=== PATIENT | female | born 1970 | race Caucasian/White ===

== ENCOUNTER → 2018-08-06 | Outpatient (CLI) | payer BC ==
--- NOTE | 2018-08-10 07:39 | MM ---
Reason for exam: screening (asymptomatic). Last mammogram was performed 2 years and 10 months ago. Physical Findings: A clinical breast exam by your physician is recommended on an annual basis and results should be correlated with mammographic findings. MG 3D Screening Mammo W/Cad Bilateral CC and MLO view(s) were taken. Prior study comparison: October 08, 2015, bilateral MG 3d screening mammo w/cad. August 04, 2014, bilateral MG screening mammo w CAD. No significant changes when compared with prior studies. ASSESSMENT: Benign, BI-RAD 2 RECOMMENDATION: Routine screening mammogram of both breasts in 1 year.
== END | disposition home or self-care (01) ==
LOC: RADMAMWWP 08:52
PROVIDERS: ATTEND Obstetrics & Gynecology
DX: Z12.31 Encounter for screening mammogram for malignant neoplasm of breast (principal)
CPT/HCPCS: 77063; 77067

== ENCOUNTER → 2019-09-07 | Outpatient (CLI) | payer BC ==
--- NOTE | 2019-09-08 10:57 | MM ---
Reason for exam: screening (asymptomatic). Last mammogram was performed 1 year and 1 month ago. Physical Findings: A clinical breast exam by your physician is recommended on an annual basis and results should be correlated with mammographic findings. MG 3D Screening Mammo W/Cad Bilateral CC, MLO, and XCCL view(s) were taken. Prior study comparison: August 06, 2018, bilateral MG 3d screening mammo w/cad. October 08, 2015, bilateral MG 3d screening mammo w/cad. The breast tissue is heterogeneously dense. This may lower the sensitivity of mammography. There is no discrete abnormality. ASSESSMENT: Negative, BI-RAD 1 RECOMMENDATION: Routine screening mammogram of both breasts in 1 year.
== END | disposition home or self-care (01) ==
LOC: RADMAMWWP 07:44
PROVIDERS: ATTEND Obstetrics & Gynecology
DX: Z12.31 Encounter for screening mammogram for malignant neoplasm of breast (principal)
CPT/HCPCS: 77063; 77067

== ENCOUNTER → 2020-09-10 | Outpatient (CLI) | payer BC ==
--- NOTE | 2020-09-11 10:37 | MM ---
Reason for exam: screening (asymptomatic). Last mammogram was performed 1 year ago. History: Took hormonal contraceptives for 20 years. Physical Findings: A clinical breast exam by your physician is recommended on an annual basis and results should be correlated with mammographic findings. MG 3D Screening Mammo W/Cad Bilateral CC and MLO view(s) were taken. Prior study comparison: September 07, 2019, bilateral MG 3d screening mammo w/cad. August 06, 2018, bilateral MG 3d screening mammo w/cad. The breast tissue is heterogeneously dense. This may lower the sensitivity of mammography. Finding: There is questionable architectural distortion in the upper outer quadrant of the left breast. ASSESSMENT: Incomplete: need additional imaging evaluation, BI-RAD 0 RECOMMENDATION: Special view mammogram of the left breast. If lesion persists on supplemental views, image directed ultrasound is recommended. [facility] will attempt to contact patient to return for supplemental views and ultrasound if indicated.
== END | disposition home or self-care (01) ==
LOC: RADMAMWWP 07:58
PROVIDERS: ATTEND Obstetrics & Gynecology
DX: Z12.31 Encounter for screening mammogram for malignant neoplasm of breast (principal)
CPT/HCPCS: 77063; 77067

== ENCOUNTER → 2020-09-11 | Day surgery (SDC) | payer BC ==
[2020-09-05 08:24] VITALS: BMI 26.6
[~2020-09-11] MED LIST: LACTATED RINGERS 1,000 ML IV SCH; LIDOCAINE 1% (10MG/ML) FOR IV START INTRADERMA PRN; PROPOFOL 10 MG/ML 20 ML VIAL IV ONE
[2020-09-11 10:13] VITALS: TEMP 97.9
--- NOTE | 2020-09-11 10:29 | P.GSHP ---
History of Present Illness H&P Date: 09/11/20 Chief Complaint: Colon cancer screening Patient today for colonoscopy. She has not had one previously. No bowel complaints. No family history of colon cancer. Past Medical History Past Medical History: No Reported History History of Any Multi-Drug Resistant Organisms: None Reported Past Surgical History: Section, Uterine Ablation Additional Past Surgical History / Comment(s): D & C Past Anesthesia/Blood Transfusion Reactions: No Reported Reaction Past Psychological History: No Psychological Hx Reported Smoking Status: Never smoker Past Alcohol Use History: Occasional Past Drug Use History: None Reported - Past Family History Mother Family Medical History: No Reported History Medications and Allergies Home Medications Medication Instructions Recorded Confirmed Type Cholecalciferol (Vitamin D3) 125 mcg PO DAILY 09/05/20 09/05/20 History [Vitamin D3] Evening [place] Oil 500 mg PO DAILY 09/05/20 09/05/20 History Magnesium Oxide [Magox 400] 400 mg PO DAILY 09/05/20 09/05/20 History Allergies Allergy/AdvReac Type Severity Reaction Status Date / Time ARTIFICIAL SWEETNERS AdvReac NUMBNESS/TINGLING Uncoded 09/05/20 08:17 IN EXTREMITIES Surgical - Exam Vital Signs Temp Pulse Resp BP Pulse Ox 97.9 F 106 H 20 125/56 97 09/11/20 10:04 09/11/20 10:04 09/11/20 10:04 09/11/20 10:04 09/11/20 10:04 Physical exam: General: Well-developed, well-nourished HEENT: Normocephalic, sclerae nonicteric Abdomen: Nontender, nondistended Extremities: No edema Neuro: Alert and oriented Assessment and Plan (1) Colon cancer screening Narrative/Plan: Will proceed with colonoscopy at this time Current Visit: Yes Status: Acute Code(s): Z12.11 - ENCOUNTER FOR SCREENING FOR MALIGNANT NEOPLASM OF COLON SNOMED Code(s): 694550917
--- NOTE | 2020-09-11 10:43 | P.PCN ---
Date of Procedure: 09/11/20 Procedure(s) Performed: PREOPERATIVE DIAGNOSIS: Colon cancer screening POSTOPERATIVE DIAGNOSIS: Diverticulosis PROCEDURE: Colonoscopy ANESTHESIA: MAC SURGEON: Vaibhav Vickers M.D. SPECIMENS: None ENDOSCOPIC PROCEDURE: The patient was placed on the endoscopy table in the left decubitus position. The Olympus colonoscope was inserted into the anus and passed under direct visualization to the base of the cecum. The appendiceal orifice was visualized. From that point the scope was slowly withdrawn inspe cting all surfaces carefully. There were no neoplastic inflammatory or polypoid lesions throughout the cecum, ascending, transverse, descending, sigmoid and rectum. There was moderate scattered diverticulosis noted. Digital rectal examination was normal. The patient was taken to the recovery room in stable condition per anesthesia guidelines. RECOMMENDATIONS: Resume diet. Follow colonoscopy 10 years
[2020-09-11 10:52] VITALS: BP 102/68; PULSE 91; RESP 16
== END ==
LOC: ORWHC2ENDO 09:40
PROVIDERS: ATTEND Surgery
DX: Z12.11 Encounter for screening for malignant neoplasm of colon (principal); K57.30 Diverticulosis of large intestine without perforation or abscess without bleeding; Z98.891 History of uterine scar from previous surgery; Z98.890 Other specified postprocedural states; Z91.09 Other allergy status, other than to drugs and biological substances
CPT/HCPCS: J2704; G0121; 45378

== ENCOUNTER → 2020-09-12 | Outpatient (CLI) | payer BC ==
--- NOTE | 2020-09-12 14:01 | MM ---
Reason for exam: additional evaluation requested from abnormal screening. Last mammogram was performed less than 1 month ago. History: Took hormonal contraceptives for 20 years. Physical Findings: Nurse Summary: 1cm nodule in the left breast at 3 o'clock (nurse ms). MG 3D Work Up W/Cad LT Spot compression CC, spot compression MLO, and LM view(s) were taken of the left breast. Prior study comparison: September 10, 2020, bilateral MG 3d screening mammo w/cad. September 07, 2019, bilateral MG 3d screening mammo w/cad. The breast tissue is heterogeneously dense. This may lower the sensitivity of mammography. 1.5cm spiculated mass posterior 3 o'clock left breast at the nurse palpated site. These results were verbally communicated with the patient and result sheet given to the patient on 09/12/20. ASSESSMENT: Incomplete: need additional imaging evaluation, BI-RAD 0 RECOMMENDATION: Ultrasound of the left breast.
--- NOTE | 2020-09-12 14:13 | USB ---
Reason for exam: additional evaluation requested from abnormal screening. History: Took hormonal contraceptives for 20 years. US Breast Workup LT Technologist: Alyssa Delaney Left complete breast ultrasound includes all four quadrants, the retroareolar region and axilla. Finding demonstrates a 0.4 x 0.3 x 0.2cm lesion too small to characterize at 1 o'clock probable cyst, a 0.7 x 0.5 x 0.3cm oval, cystic lesion at 2 o'clock, a 1.3 x 1.3 x 1.1cm spiculated, solid lesion at 3 o'clock, suspicious, biopsy recommended and a 0.8 x 0.9 x 0.5cm cystic lesion at 2 o'clock. These results were verbally communicated with the patient and result sheet given to the patient on 09/12/20. ASSESSMENT: Highly suggestive of malignancy, BI-RAD 5 RECOMMENDATION: Surgical consultation and ultrasound core biopsy of the left breast. Called Dr. Bowman's office with mammographic findings and has scheduled an appointment for the patient for 09/20/20 at 10:[address] Ramirez. Biopsy scheduled for 09/13/20 at 1:00. PRELIMINARY REPORT CALLED AND FAXED TO DR. RAMIREZ ON 09/12/20.
== END | disposition home or self-care (01) ==
LOC: RADMAMWWP 10:20
PROVIDERS: ATTEND Obstetrics & Gynecology
DX: R92.8 Other abnormal and inconclusive findings on diagnostic imaging of breast (principal)
CPT/HCPCS: 77061; 77065

== ENCOUNTER → 2020-09-13 | Day surgery (SDC) | payer BC ==
[2020-09-13 12:17] VITALS: RESP 16
--- NOTE | 2020-09-13 13:31 | USB ---
EXAMINATION TYPE: US biopsy breast VAD LT, MG diagnostic mammo LT wo CAD DATE OF EXAM: 09/13/2020 CLINICAL HISTORY: R92.8 Abnormal mammogram. Abnormal ultrasound. TECHNIQUE: Ultrasound guided core biopsy of left breast with clip placement and follow-up diagnostic two-view mammogram. COMPARISON: Mammogram and ultrasound from one day earlier. FINDINGS: The procedure of ultrasound guided core biopsy was explained to the patient. Benefits, alt ernatives, and risks were discussed. An informed consent was then obtained. The patient was placed in supine positioning for imaging and for the procedure. Preprocedure images redemonstrate irregular hypoechoic roughly 1.3 cm mass 3:00 position zone B in the left breast. The o verlying skin was prepped and draped in usual sterile fashion. Lidocaine is used as anesthetic into t he skin and subcutaneous tissue. Lidocaine with epinephrine is used as anesthetic into the deeper tis cassandra up to area of concern in the left breast. Under ultrasound guidance, a vacuum assisted biopsy gun device was used to obtain 3 core samples. Fo llowing this, a biopsy clip was left in lesion. The patient tolerated the procedure well without any immediate complication. The patient was kept in the radiology department for short stay after the procedure and then discharged home in stable condi tion. Postprocedure mammogram shows clip deployed corresponding to the area of suspicion or new distortion. IMPRESSION: Successful, uncomplicated ultrasound guided core biopsy of area of concern in the left br east, full pathology results to follow. High index of suspicion noted at time of procedure.
[2020-09-13 13:34] VITALS: BP 138/77; PULSE 109; TEMP 98.4
== END ==
LOC: RADUSWWP 11:56
PROVIDERS: ATTEND Surgery
DX: C50.812 Malignant neoplasm of overlapping sites of left female breast (principal); Z17.0 Estrogen receptor positive status [ER+]
CPT/HCPCS: 88305; 88342; 88341; 77065; 19083; A4648; J2001

== ENCOUNTER → 2020-10-17 | Outpatient (CLI) | payer BC ==
--- NOTE | 2020-10-19 07:54 | BMR ---
EXAMINATION TYPE: MR breast BILAT wo/w con DATE OF EXAM: 10/17/2020 7:36 PM COMPARISON: Diagnostic mammography 09/12/2020 left breast ultrasound 09/12/2020 HISTORY: Left breast cancer CONTRAST: The patient was injected with 7.5 mL intravenous Gadavist gadolinium contrast. TECHNIQUE: Precontrast T1 and T2 coronal, axial and high-resolution STIR sagittal images were acquire d. Postcontrast dynamic images were acquired.This study was processed using a [employer] computer-aid ed detection system to optimize radiologist interpretation by generating multiplanar and three-dimens ional reconstructions, creating subtraction images from the dynamic contrast data and computing tumor volumes and dimensions. FINDINGS: Right breast: There is moderate fibroglandular tissue seen with mild adenosis present. There is no e vidence for an enhancing mass or pathologic enhancement. Scattered hyperintense lesions noted compat ible with simple cysts. No solid mass is detected. No skin thickening or nipple retraction is seen. No axillary adenopathy present. Left breast: There is moderate fibroglandular tissue seen with mild adenosis present. There has been prior biopsy at the approximate 3:00 position zone B with clip placement and biopsy-proven malignancy . Signal dropout is noted. No additional suspicious masses are noted within the left breast. Scattere d cysts are evident. No skin thickening or nipple retraction is seen. No axillary adenopathy present . IMPRESSION: 1. Right breast: BI-RADS 2 benign 2. Left breast: BI-RADS 6 biopsy-proven malignancy RECOMMENDATION: Surgical consultation MR is approximately 98% specific in excluding invasive or infil trative malignant neoplasm when hypovascularity or absence of enhancement is determined. Rare hypovas cular neoplasms include mucinous carcinomas and tubular carcinomas. MR may not detect low-grade of D CIS and unusual instances of hypovascular lobular carcinomas have been reported. Mr breast findings should not be used to mitigate against biopsy in cases where there is substantive mammographic eviden ce of malignancy. Mri is not a suitable substitute for yearly screening mammogram unless the patient has extremely dense breasts and the mammography study is limited or un-interpretable at which point the decision to substitute MR is at the discretion of the patient and the patients clinician.
== END | disposition home or self-care (01) ==
LOC: RADMRIMAIN 17:54
PROVIDERS: ATTEND Surgery
DX: C50.912 Malignant neoplasm of unspecified site of left female breast (principal)
CPT/HCPCS: 77049; C8937; A9585

== ENCOUNTER 2020-10-22 06:18 | Day surgery (SDC) | payer BC ==
[2020-10-17 10:43] VITALS: BMI 29.1
[~2020-10-22 06:18] MED LIST changes: +ACETAMINOPHEN TAB 500 MG TAB PO PRN; +DEXAMETHASONE SOD PHOSPHATE 4 MG/ML 1 ML VIAL IV ONE; +HEPARIN SODIUM,PORCINE 5,000 UNIT/ML 1 ML VIAL SQ PRN; +ONDANSETRON 4 MG/2 ML VIAL IVP ONE; -PROPOFOL 10 MG/ML 20 ML VIAL IV ONE; +Pre Op ABX Message 1 EACH MISC MISCELLANE ONE; +SCOPOLAMINE 1.5MG/72HR PATCH TRANSDERM ONE
[2020-10-22] MEDS ORDERED: LACTATED RINGERS 1,000 ML IV ONE ×4 (06:28→13:57)
[2020-10-22] MEDS ORDERED: ALPRAZolam 0.5 MG TAB ONE (06:43)
--- NOTE | 2020-10-22 07:50 | P.GSHP ---
History of Present Illness H&P Date: 10/22/20 49-year-old female underwent recentmammogram showing distortion upper outer quadrant. Ultrasound showed a 1.5 cm mass. Biopsy results show ER positive KS positive invasive ductal carcinoma. Patient underwent a recent MRI that was normal. Genetic testing has been ordered still pending at this time. She has been seen by oncology supports her plans for breast conservation Past Medical History Past Medical History: Cancer Additional Past Medical History / Comment(s): breast cancer lt breast History of Any Multi-Drug Resistant Organisms: None Reported Past Surgical History: Section, Tubal Ligation, Uterine Ablation Additional Past Surgical History / Comment(s): D & C Past Anesthesia/Blood Transfusion Reactions: No Reported Reaction Smoking Status: Never smoker - Past Family History Mother Family Medical History: No Reported History Medications and Allergies Home Medications Medication Instructions Recorded Confirmed Type Cholecalciferol (Vitamin D3) 125 mcg PO DAILY 09/05/20 10/22/20 History [Vitamin D3] Evening [place] Oil 500 mg PO DAILY 09/05/20 10/22/20 History Magnesium Oxide [Magox 400] 400 mg PO DAILY 09/05/20 10/22/20 History Allergies Allergy/AdvReac Type Severity Reaction Status Date / Time ARTIFICIAL SWEETNERS AdvReac Mild NUMBNESS/TINGLING Uncoded 10/22/20 06:50 IN EXTREMITIES Surgical - Exam Vital Signs Temp Pulse Resp BP Pulse Ox 98.4 F 87 16 121/78 97 10/22/20 06:39 10/22/20 06:39 10/22/20 06:39 10/22/20 06:39 10/22/20 06:39 Physical exam: General: Well-developed, well-nourished HEENT: Normocephalic, sclerae nonicteric Right breast: no masses, no adenopathy Left breast: recent scar noted, no masses, no adenopathy Abdomen: Nontender, nondistended Extremities: No edema Neuro: Alert and oriented Assessment and Plan (1) Breast cancer, left Narrative/Plan: Will proceed with wire localization left breast lumpectomy with sentinel lymph node biopsy and injection at this time. risks of bleeding, infection, scarring, numbness, possible need for additional surgery, possible need for lymph node dissection, possible nerve injury. Patient understands and wishes to proceed. Current Visit: Yes Status: Acute Code(s): C50.912 - MALIGNANT NEOPLASM OF UNSPECIFIED SITE OF LEFT FEMALE BREAST SNOMED Code(s): 710279248
[2020-10-22] MEDS ORDERED: LIDOCAINE 1% INJ 10MG/ML (20 ML MDV) SQ ONE (08:32)
--- NOTE | 2020-10-22 09:23 | USB ---
EXAMINATION TYPE: US breast localization LT DATE OF EXAM: 10/22/2020 CLINICAL HISTORY: C50.912 breast cancer. TECHNIQUE: Ultrasound guided wire localization of left breast. COMPARISON: 09/13/2020 FINDINGS: The ultrasound guided wire localization was explained to the patient, risks benefits were discussed. Informed consent was obtained. Timeout was performed. The patient was placed in supine positioning for imaging and for the procedure. The overlying skin was prepped with X and sterilely draped in usual sterile fashion. Lidocaine 1% was used as anesthetic into the skin and deeper breast tissue up to area of concern in the breast. Under ultrasound guidance, a 7 cm needle was placed through the lesion. The clip is identified during the exam. The wire was placed through the needle and the needle withdrawn. The patient then head sentinel node injection. Postprocedure mammograms were obtained in marked and transferred the patient to presurgical holding. Patient tolerated procedure very well. Wire localization and excision was discussed with the surgeon by telephone. IMPRESSION: 1. Successful ultrasound guided wire localization left breast. Pathology Results: Malignant A. SENTINEL LYMPH NODE #1, BIOPSY: Lymph node positive for metastatic carcinoma. Size of metastatic deposit measures 8 mm in greatest dimension. B. SENTINEL LYMPH NODE #2, BIOPSY: Lymph node negative for metastasis. CK7 and LORENZO immunoperoxidase stains are confirmatory (controls appropriate). C. 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 Invasive carcinoma focally involves the superior margin. All other margins negative for invasive malignancy or DCIS. See Surgical Pathology Cancer Case Summary. D. AXILLARY CONTENTS: Six lymph nodes negative for metastasis. Surgical consult of the left breast. JODY
--- NOTE | 2020-10-22 09:43 | NM ---
EXAMINATION TYPE: NM sentinel node injection DATE OF EXAM: 10/22/2020 COMPARISON: NONE INDICATION: Abnormal mammogram. Informed consent was obtained. A timeout was performed. The area around the left nipple was cleansed with alcohol. In a single dose, a total of 454 microcuri es Technetium 99m Tilmanocept was injected. The patient tolerated the procedure very well. IMPRESSIONS: 1.. Successful injection for sentinel node evaluation.
--- NOTE | 2020-10-22 10:05 | MM ---
Reason for exam: additional evaluation requested from abnormal screening. Last mammogram was performed 1 month ago. History: Patient has history of breast cancer at age 49. Malignant US biopsy breast VAD LT of the left breast, September 13, 2020. Took hormonal contraceptives for 20 years. MG Diagnostic Mammo LT Wo CAD CC and ML view(s) were taken of the left breast. Prior study comparison: September 13, 2020, left breast MG diagnostic mammo LT wo CAD. September 12, 2020, left breast MG 3d work up w/cad LT. ASSESSMENT: Post procedure mammogram for marker placement RECOMMENDATION: Ultrasound of the left breast in 6 months. PENDING PATHOLOGY RESULTS.
[2020-10-22] MEDS ORDERED: HYDROmorphone (PF) 1 MG/ML ONE (10:50)
[2020-10-22] MEDS ORDERED: MIDAZOLAM 2 MG/2 ML VIAL ONE (10:50)
[2020-10-22] MEDS ORDERED: PROPOFOL 10 MG/ML 20 ML VIAL IV ONE (10:50)
[2020-10-22] MEDS ORDERED: SUCCINYLCHOLINE CHLORIDE 100 MG/5 ML SYR IV ONE (10:50)
[2020-10-22] MEDS ORDERED: LIDOCAINE 1% INJ 10MG/ML (20 ML MDV) ONE (10:50)
[2020-10-22] MEDS ORDERED: fentaNYL (PF) 50 MCG/ML 2 ML AMP ONE (10:50)
[2020-10-22] MEDS ORDERED: SODIUM CHLORIDE 0.9% 100 ML with ceFAZolin 2,000 MG IV ONE ×2 (11:12)
[2020-10-22] MEDS ORDERED: BUPIVACAINE (PF) 0.25% 30 ML VIAL SQ ONE ×2 (11:37→13:07)
--- NOTE | 2020-10-22 12:26 | USB ---
EXAMINATION TYPE: US breast surgical specimen LT DATE OF EXAM: 10/22/2020 COMPARISON: Localization imaging performed earlier in the morning HISTORY: Abnormal mammogram, abnormal ultrasound, abnormal pathology TECHNIQUE: Real-time linear array sonography is performed over the specimen. FINDINGS: Wire is identified. The wire is extending through the hypoechoic irregular lesion. IMPRESSION: 1. Successful wire localization and excision. Pathology Results: Malignant A. SENTINEL LYMPH NODE #1, BIOPSY: Lymph node positive for metastatic carcinoma. Size of metastatic deposit measures 8 mm in greatest dimension. B. SENTINEL LYMPH NODE #2, BIOPSY: Lymph node negative for metastasis. CK7 and LORENZO immunoperoxidase stains are confirmatory (controls appropriate). C. 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 Invasive carcinoma focally involves the superior margin. All other margins negative for invasive malignancy or DCIS. See Surgical Pathology Cancer Case Summary. D. AXILLARY CONTENTS: Six lymph nodes negative for metastasis. Surgical consult of the left breast. JODY
[2020-10-22] MEDS: HYDROmorphone 0.5 MG/0.5 ML SYRINGE IVP PRN ×2 (13:54→14:27)
[2020-10-22] MEDS ORDERED: ACETAMINOPHEN TAB 325 MG TAB PO PRN (13:57)
[2020-10-22] MEDS ORDERED: ONDANSETRON 4 MG/2 ML VIAL IVP PRN (13:57)
[2020-10-22] MEDS ORDERED: HYDROmorphone 0.5 MG/0.5 ML SYRINGE IVP PRN (13:57)
[2020-10-22] MEDS ORDERED: METOCLOPRAMIDE 5 MG/ML 2 ML VIAL IVP PRN (13:57)
[2020-10-22] MEDS ORDERED: NALOXONE 0.4 MG/ML 1 ML VIAL IV PRN (13:57)
--- NOTE | 2020-10-22 14:04 | P.NAPBC ---
NAPBC Queries - NAPBC Queries Was patient's case review presented at [facility] tumor board? If no, comment.: Yes Was patient's pathology reviewed at [facility]? If no, comment.: Yes Was breast conservation surgery offered? If no, comment.: Yes Was sentinel node biopsy offered? If no, comment.: Yes Was diagnosis confirmed by percutaneous core biopsy? If no, comment.: Yes Is patient mastectomy patient?: No Was a preop referral to reconstructive surgeon offered?: Yes Clinical Stage: 1a
--- NOTE | 2020-10-22 14:10 | P.OP ---
Date of Procedure: 10/22/20 Procedure(s) Performed: PREOPERATIVE DIAGNOSIS: Left breast cancer POSTOPERATIVE DIAGNOSIS: Same PROCEDURE: Left Breast wire localization lumpectomy with sentinel lymph node biopsy with completion axillary node dissection SURGEON: Alee EBL: 25 mL ANESTHESIA: General COMPLICATIONS: None OPERATIVE PROCEDURE: Patient was placed on the operating room table in the supine position. 2 mL of methylene blue was injected into the subareolar space. The breast was then massaged for 5 minutes. The breast was prepped and draped in usual sterile fashion. The patient's wire was entering the breast at about the 2 to 3:00 location directed medially. A single incision was made in a curvilinear fashion laterally and through this incision both the lumpectomy and the sentinel lymph node biopsy took place. Dissection first took place towards the axilla. The hot spot was identified. A total of 4 sentinel lymph nodes were removed. The first 2 lymph nodes removed were normal size and normal to palpation. The second 2 lymph nodes were enlarged one of which had an area of induration that was clinically suspicious for metastasis. The 2 larger lymph nodes were sent for frozen section and the indurated lymph node did reveal 2 foci of metastatic disease. At that time it was decided to proceed with axillary betty dissection. The axillary contents were swept from the axillary vein inferiorly. Medially our margin was the chest wall laterally are margin was latissimus dorsi. Lymphatic tissue was sent to pathology for permanent sectioning at that point. Small vessels and lymphatics were controlled using the clip setter juice packaging machines and the LigaSure device. While we were waiting for our frozen section the lumpectomy itself took place. I followed the wire down into the breast tissue. An adequate lumpectomy specimen then took place around the wire. Margins of 1.5-2 cm worth attempted to be achieved. The specimen radiograph showed the clip to be centrally positioned in the lumpectomy specimen. No additional margins were taken. The specimen was then painted the appropriate 6 colors. Clips were used to identify the lumpectomy cavity. The subcutaneous tissues were closed using 3-0 Vicryl sutures. The skin was closed using a running 4-0 Monocryl stitch. Skin glue and sterile dressings were then applied. DISPOSITION: Stable to recovery room
[2020-10-22] MEDS ORDERED: ONDANSETRON 4 MG/2 ML VIAL IVP ONE (15:12)
[2020-10-22] MEDS ORDERED: METOCLOPRAMIDE 5 MG/ML 2 ML VIAL IVP ONE (15:32)
--- NOTE | 2020-10-22 16:09 | MM ---
EXAMINATION TYPE: MG surgical specimen LT DATE OF EXAM: 10/22/2020 COMPARISON: Mammographic localization images 10/22/2020 HISTORY: Abnormal pathology TECHNIQUE: Single mammographic specimen FINDINGS: Mammographic specimen: The wire is within the specimen. The clip is within the specimen. The expected region localizes present. Ultrasound specimen: Wire is within the specimen. The hypoechoic area localized is evident within the specimen. IMPRESSION: 1. Successful wire localization and excision. Recommendations: 1. Recommendations are pending pathology results. Pathology Results: Malignant A. SENTINEL LYMPH NODE #1, BIOPSY: Lymph node positive for metastatic carcinoma. Size of metastatic deposit measures 8 mm in greatest dimension. B. SENTINEL LYMPH NODE #2, BIOPSY: Lymph node negative for metastasis. CK7 and LORENZO immunoperoxidase stains are confirmatory (controls appropriate). C. 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 Invasive carcinoma focally involves the superior margin. All other margins negative for invasive malignancy or DCIS. See Surgical Pathology Cancer Case Summary. D. AXILLARY CONTENTS: Six lymph nodes negative for metastasis. Surgical consult of the left breast. MTDD
[2020-10-22] MEDS: HEPARIN SODIUM,PORCINE 5,000 UNIT/ML 1 ML VIAL SQ SCH (17:34)
[2020-10-22] MEDS: HYDROcodone/APAP 5-325MG 1 EACH TAB PO PRN (20:22)
[2020-10-22] MEDS: DOCUSATE 100 MG CAP PO SCH (20:22)
[2020-10-23] MEDS: HEPARIN SODIUM,PORCINE 5,000 UNIT/ML 1 ML VIAL SQ SCH ×2 (01:42→08:58)
[2020-10-23 06:23] LABS: Basophils % (A) 0 %; Eosinophils # (A) 0.2 k/uL (0-0.7); Eosinophils % (A) 1 %; HCT 39.3 % (34.0-46.0); HGB 13.1 gm/dL (11.4-16.0); Lymphocytes % (A) 16 %; MCH 29.9 pg (25.0-35.0); MCHC 33.4 g/dL (31.0-37.0); MCV 89.5 fL (80.0-100.0); Mean Platelet Volume 7.4; Monocytes # (A) 1.1 k/uL (0-1.0); Monocytes % (A) 6 %; Neutrophils % (A) 76 %; Platelet Count 377 k/uL (150-450); RBC 4.39 m/uL (3.80-5.40); RDW 12.8 % (11.5-15.5); WBC 18.5 k/uL (3.8-10.6)
[2020-10-23 06:37] LABS: African American GFR (CKD) >90 (>60 ml/min/1.73 sqM); Anion Gap 6 mmol/L; Blood Urea Nitrogen 9 mg/dL (7-17); Calcium 8.7 mg/dL (8.4-10.2); Carbon Dioxide 26 mmol/L (22-30); Chloride 104 mmol/L (98-107); Glucose 101 mg/dL (74-99); Non-African American GFR(CKD) >90 (>60 ml/min/1.73 sqM); Potassium 3.8 mmol/L (3.5-5.1); Sodium 136 mmol/L (137-145)
[2020-10-23 08:55] VITALS: RESP 16
[2020-10-23] MEDS: DOCUSATE 100 MG CAP PO SCH (08:57)
[2020-10-23] MEDS: HYDROcodone/APAP 5-325MG 1 EACH TAB PO PRN (08:58)
[2020-10-23] MEDS ORDERED: PANTOPRAZOLE 40 MG/10 ML VIAL IV SCH (09:00)
[2020-10-23] MEDS: diphenhydrAMINE 25 MG CAP PO STA ×2 (10:06→10:07)
[2020-10-23 14:19] VITALS: BP 119/76; PULSE 103
[2020-10-23 16:25] VITALS: TEMP 98.3
--- NOTE | 2020-10-23 18:01 | P.DS ---
Providers Expected date of discharge: 10/23/20 Attending physician: Vaibhav Vickers Consults: 10/22/20 13:57 Consult Physician Routine Consulting Provider: Be Diaz Consult Reason/Comments: Medical management Do you want consulting provider notified?: Yes Primary care physician: Amos Gentile - Discharge Diagnosis(es) (1) Breast cancer, left Patient was kept overnight for observation. Doing well today. Mild tachycardia. Improving throughout the day. Recent heart rate 101. Patient's white blood cell count elevated postoperatively which is likely related to the recent surgery. No fevers. [place] somewhat flushed earlier today. No chills. Incision is doing well without erythema. JACKSON drain serosanguineous. Patient would like to go home. She was cleared by medicine. We'll discharge today. Follow-up one week. AJCKSON drain in place following discharge. Status: Acute Plan - Discharge Summary Discharge Rx Participant: No New Discharge Prescriptions: New traMADol HCL [Ultram] 50 mg PO Q6HR PRN 3 Days #6 tab PRN Reason: pain No Action Magnesium Oxide [Magox 400] 400 mg PO DAILY Evening [place] Oil 500 mg PO DAILY Cholecalciferol (Vitamin D3) [Vitamin D3] 125 mcg PO DAILY Discharge Medication List Cholecalciferol (Vitamin D3) [Vitamin D3] 125 mcg PO DAILY 09/05/20 [History] Evening [place] Oil 500 mg PO DAILY 09/05/20 [History] Magnesium Oxide [Magox 400] 400 mg PO DAILY 09/05/20 [History] traMADol HCL [Ultram] 50 mg PO Q6HR PRN 3 Days #6 tab 10/22/20 [Rx] Follow up Appointment(s)/Referral(s): Vaibhav Vickers MD [Medical Doctor] - 10/31/20 2:30 pm Activity/Diet/Wound Care/Special Instructions: Regular diet as tolerated, valve setter until passing gas regularly. drink fluids. No heavy lifting. (if it feels too heavy, put it down) no strenuous activity. no driving until ok with Dr. Mcconnell shower, no tub baths or soaks., cover jackson site for showering. refer to JACKSON care sheet for emptying and recording jackson drainage. Good hand washing before and after jackson care. Call your Dr with any fever > 100.3 , chills, increased pain not controlled with your pain medicine, increased redness or discolored drainage from your incision or jackson site, sudden increase or concerning drainage from jackson drain or any concerns. Last received [place] at 0900. Good hand washing for all in the house. Discharge Disposition: HOME SELF-CARE
--- NOTE | 2020-10-23 23:43 | P.CONS ---
History of Present Illness - Reason for Consult Consult date: 10/23/20 Medical management Requesting physician: Vaibhav Vickers - Chief Complaint Breast surgery - History of Present Illness Consultation: This is a very pleasant 49-year-old patient is rather good health who follows with Dr. Gentile. Patient had recent mammogram done that showed distortion of the left upper quadrant. Ultrasound showed a 1.5 cm mass. Biopsy did show ER positive WA positive invasive ductal carcinoma. Recent MRI was unremarkable. Genetic testing was pending. Patient underwent left breast wire localization lumpectomy with sentinel node biopsy with completion of accessory node dissection. This morning patient has some discomfort at the operative site. Has a GORGE drain. Has some nausea last night. No fever no chills. Has been out of bed. Patient has some anxiety. Slightly tachycardic. No shortness of breath. No swelling of the legs. Review of systems: GEN.: None EYES: None HEENT: None NECK: None RESPIRATORY: None CARDIOVASCULAR: None GASTROINTESTINAL: None GENITOURINARY: None MUSCULOSKELETAL: [Pain at the operative site LYMPHATICS: None HEMATOLOGICAL: None PSYCHIATRY: None NEUROLOGICAL: None Past medical history to include: Invasive ductal carcinoma of the left breast. GERD occasionally Social history: . 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 Does not smoke. Alcohol occasionally. Family history: None reported Physical examination: VITAL SIGNS: 98.3, 103, 16, 119/76, 96% room air GENERAL: BMI 30.5, sitting up, slightly anxious. EYES: Pupils equal. Conjunctiva normal. HEENT: External appearance of nose and ears normal, oral cavity grossly normal. NECK: JVD not raised; masses not palpable. HEART: First and second heart sounds are normal; no edema. LUNGS: Respiratory rate normal; clear to auscultation. CHEST wall: Dressing over the left chest with a GORGE drain ABDOMEN: Soft, nontender, liver spleen not palpable, no masses palpable. PSYCH: Alert and oriented x3; mood and affect normal. NEUROLOGICAL: Cranial nerves grossly intact; no facial asymmetry, power and sensation grossly intact. LYMPHATICS: No lymph nodes palpable in the axilla and neck INVESTIGATIONS, reviewed in the clinical context: White count 18.5 hemoglobin 13.1 potassium 3.8 creatinine 0.5 once Assessment and plan: -Left-sided invasive ductal carcinoma positive ER, positive WA. Status post lumpectomy and sentinel node biopsy with axillary node dissection -Mild sinus tachycardia likely from pain is slight anxiety. Patient has no christy ulder. No cough swelling. -Obesity BMI 30.5 -Leukocytosis likely reactive from surgery. Currently no clinical evidence of infection. No fever. Patient feels well. Plan continue current medication treatment plan. Diet is being advanced. Patient doing well. If discharge and follow with the family doctor. Thank you Dr. Addison Past Medical History Past Medical History: Cancer Additional Past Medical History / Comment(s): breast cancer lt breast History of Any Multi-Drug Resistant Organisms: None Reported Past Surgical History: Section, Tubal Ligation, Uterine Ablation Additional Past Surgical History / Comment(s): D & C Past Anesthesia/Blood Transfusion Reactions: No Reported Reaction Past Psychological History: No Psychological Hx Reported Smoking Status: Never smoker Past Alcohol Use History: Occasional Past Drug Use History: None Reported - Past Family History Mother Family Medical History: No Reported History Additional Family Medical History / Comment(s): cervical at a young age tx Father Family Medical History: Hypertension Medications and Allergies Home Medications Medication Instructions Recorded Confirmed Type Cholecalciferol (Vitamin D3) 125 mcg PO DAILY 09/05/20 10/22/20 History [Vitamin D3] Evening [place] Oil 500 mg PO DAILY 09/05/20 10/22/20 History Magnesium Oxide [Magox 400] 400 mg PO DAILY 09/05/20 10/22/20 History traMADol HCL [Ultram] 50 mg PO Q6HR PRN 3 Days #6 tab 10/22/20 Rx Allergies Allergy/AdvReac Type Severity Reaction Status Date / Time ARTIFICIAL SWEETNERS AdvReac Mild NUMBNESS/TINGLING Uncoded 10/22/20 06:50 IN EXTREMITIES Physical Exam Vitals: Vital Signs Temp Pulse Resp BP Pulse Ox 10/23/20 09:17 111 H 10/23/20 08:40 97.6 F 111 H 16 107/75 98 10/23/20 02:00 98 F 88 14 99/65 96 10/22/20 20:02 98.0 F 102 H 16 116/70 97 10/22/20 16:43 118 H 16 109/78 94 L 10/22/20 15:36 117 H 16 96 10/22/20 15:15 77 18 125/74 99 10/22/20 14:45 102 H 16 121/69 96 10/22/20 14:30 118 H 16 121/74 93 L 10/22/20 14:15 106 H 14 105/64 91 L 10/22/20 14:00 105 H 16 117/71 99 10/22/20 13:45 128 H 14 131/74 98 10/22/20 13:30 118 H 14 119/64 98 10/22/20 13:26 108 H 14 118/71 96 Intake and Output 10/22/20 10/23/20 10/23/20 22:59 06:59 14:59 Intake Total 60 Output Total 60 15 Balance 0 -15 Intake: Oral 60 Output: Drainage 20 15 Left Breast 20 15 Emesis 40 Other: # Voids 1 1 Weight 83.2 kg Results CBC & Chem 7: 10/23/20 06:00 10/23/20 06:00 Labs: Abnormal Lab Results - Last 24 Hours (Table) 10/23/20 10/23/20 Range/Units 06:00 06:00 WBC 18.5 H (3.8-10.6) k/uL Neutrophils # 14.0 H (1.3-7.7) k/uL Monocytes # 1.1 H (0-1.0) k/uL Sodium 136 L (137-145) mmol/L Creatinine 0.51 L (0.52-1.04) mg/dL Glucose 101 H (74-99) mg/dL
== END 2020-10-23 17:23 | disposition home or self-care (01) ==
LOC: OR 06:18 → 6PED 14:59 → OR 10-23 17:23
PROVIDERS: ATTEND Surgery
DX: C77.3 Secondary and unspecified malignant neoplasm of axilla and upper limb lymph nodes (principal); C50.412 Malignant neoplasm of upper-outer quadrant of left female breast; Z17.0 Estrogen receptor positive status [ER+]; Z98.891 History of uterine scar from previous surgery; Z98.51 Tubal ligation status; Z98.890 Other specified postprocedural states; K21.9 Gastro-esophageal reflux disease without esophagitis; R00.0 Tachycardia, unspecified; E66.9 Obesity, unspecified; Z68.30 Body mass index [BMI] 30.0-30.9, adult; D72.829 Elevated white blood cell count, unspecified; Z82.49 Family history of ischemic heart disease and other diseases of the circulatory system; Z91.02 Food additives allergy status
CPT/HCPCS: 38792; 76098; 76999; 77065; 80048; 81025; 85025; 88307; 88331; 88332; 88341; 88342

== ENCOUNTER 2020-11-16 09:54 | Day surgery (SDC) | payer BC ==
--- NOTE | 2020-11-16 08:44 | P.HPADDEND ---
H&P Addendum H&P Addendum Date: 11/16/20 Please refer to recent history and physical from office on October 31. Patient here today for re-lumpectomy left breast. Patient has a positive superior margin. No changes to the history and physical obtained previously.
[~2020-11-16 09:54] MED LIST changes: -ACETAMINOPHEN TAB 500 MG TAB PO PRN; +HYDROmorphone 0.5 MG/0.5 ML SYRINGE IVP PRN; -LIDOCAINE 1% (10MG/ML) FOR IV START INTRADERMA PRN; +MIDAZOLAM 2 MG/2 ML VIAL IV PRN
[2020-11-16 10:27] VITALS: RESP 16
[2020-11-16] MEDS ORDERED: MIDAZOLAM 2 MG/2 ML VIAL ONE (10:41)
[2020-11-16] MEDS ORDERED: fentaNYL (PF) 50 MCG/ML 2 ML AMP ONE (10:41)
[2020-11-16] MEDS ORDERED: LIDOCAINE 1% INJ 10MG/ML (20 ML MDV) ONE (10:41)
[2020-11-16] MEDS ORDERED: PROPOFOL 10 MG/ML 20 ML VIAL IV ONE (10:41)
[2020-11-16] MEDS ORDERED: BUPIVACAINE (PF) 0.25% 30 ML VIAL SQ ONE ×3 (11:02→11:07)
[2020-11-16] MEDS ORDERED: NALOXONE 0.4 MG/ML 1 ML VIAL IV PRN (11:52)
[2020-11-16 11:53] VITALS: TEMP 97
--- NOTE | 2020-11-16 11:55 | P.OP ---
Date of Procedure: 11/16/20 Procedure(s) Performed: PREOPERATIVE DIAGNOSIS: Left breast cancer POSTOPERATIVE DIAGNOSIS: Same PROCEDURE: Left breast re-lumpectomy SURGEON: Alee EBL: Minimal ANESTHESIA: General COMPLICATIONS: None OPERATIVE PROCEDURE: Patient was placed on the operating room table in the supine position. The left breast was prepped and draped sterilely. The previous scar laterally on the left breast was reexcised sharply. The lumpectomy cavity was identified approximately 1 cm beneath the skin surface. The previous clips were visualized. A re-lumpectomy took place excising the superior and medial margin. The new margins were painted the appropriate color. This was sent in formalin to pathology. Clips were used to re-delineate the margins. The subcutaneous tissues were closed using interrupted 3-0 Vicryl sutures. The skin was closed using a running 4-0 Monocryl suture. Skin glue and sterile dressings were then applied. DISPOSITION: Stable to recovery room
[2020-11-16 13:11] VITALS: BP 100/67; PULSE 86
== END 2020-11-16 13:29 | disposition home or self-care (01) ==
LOC: OR 09:54
PROVIDERS: ATTEND Surgery
DX: C50.912 Malignant neoplasm of unspecified site of left female breast (principal); Z98.890 Other specified postprocedural states; Z98.891 History of uterine scar from previous surgery; K21.9 Gastro-esophageal reflux disease without esophagitis
CPT/HCPCS: 81025; 88307; 19301; J2250; J1644; J1100; J0690; J2405; J2001; J3010; J2704

== ENCOUNTER → 2021-05-15 | Outpatient (CLI) | payer BC ==
[2021-05-15 09:03] LABS: Basophils % (A) 0 %; Eosinophils # (A) 0.1 k/uL (0-0.7); Eosinophils % (A) 2 %; HCT 42.6 % (34.0-46.0); HGB 14.3 gm/dL (11.4-16.0); Lymphocytes # (A) 0.7 k/uL (1.0-4.8); Lymphocytes % (A) 12 %; MCH 30.2 pg (25.0-35.0); MCHC 33.6 g/dL (31.0-37.0); MCV 89.7 fL (80.0-100.0); Mean Platelet Volume 7.1; Monocytes # (A) 0.4 k/uL (0-1.0); Monocytes % (A) 6 %; Neutrophils # (A) 4.5 k/uL (1.3-7.7); Neutrophils % (A) 77 %; Platelet Count 395 k/uL (150-450); RBC 4.75 m/uL (3.80-5.40); RDW 12.6 % (11.5-15.5); WBC 5.8 k/uL (3.8-10.6)
[2021-05-15 09:24] LABS: African American GFR (CKD) >90 (>60 ml/min/1.73 sqM); Anion Gap 9 mmol/L; Blood Urea Nitrogen 18 mg/dL (7-17); Calcium 10.3 mg/dL (8.4-10.2); Carbon Dioxide 29 mmol/L (22-30); Chloride 101 mmol/L (98-107); Glucose 105 mg/dL (74-99); Non-African American GFR(CKD) >90 (>60 ml/min/1.73 sqM); Potassium 4.8 mmol/L (3.5-5.1); Sodium 139 mmol/L (137-145)
== END | disposition home or self-care (01) ==
LOC: LABPAT 07:57
PROVIDERS: ATTEND Obstetrics & Gynecology
DX: Z01.812 Encounter for preprocedural laboratory examination (principal)
CPT/HCPCS: 36415; 80048; 85025

== ENCOUNTER 2021-05-24 05:38 | Inpatient (IN) | payer BC ==
--- NOTE | 2021-05-23 18:53 | P.HPOB ---
History of Present Illness H&P Date: 05/23/21 Chief Complaint: Breast cancer This is a 50 y.o. female, 3, para 2, who presents for total abdominal hysterectomy with bilateral salpingooophorectomy due to breast cancer. Her oncologist has recommended oophorectomy since she is ER/[place]+. She has a history of endometrial ablation and is not having any cycles. OB Hx: . History of 1 vaginal delivery and 1 section. 1 miscarriage. 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 History of tubal ligation. Socail Hx: . 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 Review of Systems Constitutional: Reports night sweats, Denies chills, Denies fever Eyes: denies blurred vision, denies pain Ears, nose, mouth and throat: Denies headache, Denies sore throat Cardiovascular: Denies chest pain, Denies shortness of breath Gastrointestinal: Denies abdominal pain, Denies diarrhea, Denies nausea, Denies vomiting Genitourinary: Denies dysuria, Denies hematuria Menstruation: Reports amenorrhea Integumentary: Denies pruritus, Denies rash Neurological: Denies numbness, Denies weakness Psychiatric: Reports irritability, Denies anxiety, Denies depression Endocrine: Reports flushing, Denies fatigue, Denies weight change Past Medical History Past Medical History: Cancer Additional Past Medical History / Comment(s): AUG, 2020, breast cancer lt breast (CHEMO & RADIATION). History of Any Multi-Drug Resistant Organisms: None Reported Past Surgical History: Breast Surgery, Section, Tubal Ligation, Uterine Ablation Additional Past Surgical History / Comment(s): D & C, LUMPECTOMY LEFT BREAST-8 LYMPH NODES REMOVED Past Anesthesia/Blood Transfusion Reactions: Postoperative Nausea & Vomiting (PONV) Past Psychological History: No Psychological Hx Reported Smoking Status: Never smoker Past Alcohol Use History: Occasional Past Drug Use History: None Reported - Past Family History Mother Family Medical History: Cancer Additional Family Medical History / Comment(s): cervical cancer Father Family Medical History: No Reported History, Hypertension Medications and Allergies Home Medications Medication Instructions Recorded Confirmed Type Cholecalciferol (Vitamin D3) 125 mcg PO DAILY 09/05/20 05/24/21 History [Vitamin D3] Allergies Allergy/AdvReac Type Severity Reaction Status Date / Time ARTIFICIAL SWEETNERS AdvReac Mild NUMBNESS/TINGLING Uncoded 05/17/21 15:56 IN EXTREMITIES Exam Osteopathic Statement: *. No significant issues noted on an osteopathic structural exam other than those noted in the History and Physical/Consult. HEENT: within normal limits Heart: regular rate and rhythm Lungs: clear to auscultation bilaterally Abdomen: soft, non-tender Pelvic: uterus small anteverted, non-tender, no adnexal masses or tenderness Extremities: neg. Edelmira's Assessment and Plan (1) Breast cancer, left Current Visit: No Status: Acute Code(s): C50.912 - MALIGNANT NEOPLASM OF UNSPECIFIED SITE OF LEFT FEMALE BREAST SNOMED Code(s): 908936194 Plan: Proceed with total abdominal hysterectomy with bilateral salpingooophorectomy. I have discussed the risks, benefits, and alternative therapies for the above- mentioned procedure and for both sedation/anesthesia as well as necessary blood products administration, if indicated, as they pertain to this patient. The patient has indicated her understanding and acceptance of the risks and procedures discussed.
[2021-05-24] MEDS ORDERED: MIDAZOLAM 2 MG/2 ML VIAL IV PRN (05:45)
[2021-05-24] MEDS ORDERED: SCOPOLAMINE 1.5MG/72HR PATCH TRANSDERM ONE (05:45)
[2021-05-24] MEDS ORDERED: DEXAMETHASONE SOD PHOSPHATE 4 MG/ML 1 ML VIAL IV ONE (05:45)
[2021-05-24] MEDS ORDERED: ONDANSETRON 4 MG/2 ML VIAL IVP ONE (05:45)
[2021-05-24] MEDS ORDERED: LACTATED RINGERS 1,000 ML IV SCH (05:45)
[2021-05-24] MEDS ORDERED: LACTATED RINGERS 1,000 ML IV ONE ×2 (06:27→08:26)
[2021-05-24] MEDS ORDERED: HYDROmorphone 0.5 MG/0.5 ML SYRINGE IVP PRN (07:00)
[2021-05-24] MEDS ORDERED: ROCURONIUM 10 MG/ML (5 ML VIAL) IV ONE (07:30)
[2021-05-24] MEDS ORDERED: PHENYLEPHRINE-0.9% NACL SYG 1,000 MCG/10 ML SYRINGE ONE (07:30)
[2021-05-24] MEDS ORDERED: SUCCINYLCHOLINE CHLORIDE 100 MG/5 ML SYR IV ONE (07:30)
[2021-05-24] MEDS ORDERED: GLYCOPYRROLATE 0.2 MG/ML 2 ML VIAL ONE (07:30)
[2021-05-24] MEDS ORDERED: fentaNYL (PF) 50 MCG/ML 2 ML AMP ONE (07:30)
[2021-05-24] MEDS ORDERED: LIDOCAINE 1% INJ 10MG/ML (20 ML MDV) ONE (07:30)
[2021-05-24] MEDS ORDERED: PROPOFOL 10 MG/ML 20 ML VIAL IV ONE (07:30)
[2021-05-24] MEDS ORDERED: MIDAZOLAM 2 MG/2 ML VIAL ONE (07:30)
[2021-05-24] MEDS ORDERED: NEOSTIGMINE 1 MG/ML 10 ML VIAL ONE (07:30)
--- NOTE | 2021-05-24 08:57 | P.OP ---
Date of Procedure: 05/24/21 Preoperative Diagnosis: Left breast cancer Postoperative Diagnosis: Same Procedure(s) Performed: Total abdominal hysterectomy with bilateral salpingo-oophorectomy Anesthesia: GETA, spinal (Duramorph) Surgeon: Erin Bowman Windmill Technician #1: Lexx Izquierdo Estimated Blood Loss (ml): 25 Pathology: other (Uterus with cervix, bilateral tubes and ovaries) Condition: stable Disposition: floor Indications for Procedure: This is a 50 y.o. female, 3, para 2, who presents for total abdominal hysterectomy with bilateral salpingooophorectomy due to breast cancer. Her oncologist has recommended oophorectomy since she is ER/[place]+. She has a history of endometrial ablation and is not having any cycles. Operative Findings: Uterus is found to be small, retroverted, with small atrophic-appearing ovaries and normal-appearing tubes. Description of Procedure: The patient is taken to the operating room where she is placed in the dorsal supine position. She is prepped and draped in the normal sterile fashion including Dykes catheter insertion and vaginal prep. A Pfannenstiel skin incision is made with a scalpel. A second knife was used to carry the incision down to the underlying layer of fascia. The fascia was nicked in the midline with a scalpel and then extended laterally bilaterally with Menjivar scissors. The superior aspect of the fascial incision was grasped with Fabiola clamps, elevated off the underlying rectus muscle in the midline and then cut with Menjivar scissors. The inferior aspect of the fascial incision was grasped with Fabiola clamps, elevated off the underlying rectus muscle in the midline and then cut with Menjivar scissors. There was a bleeder on the right rectus muscle that was repaired with 0 Vicryl suture in interrupted [id number] stitches. Good hemostasis was noted. Next the peritoneum was identified and entered sharply with a scalpel. It is extended superiorly and in fairly with Metzenbaum scissors with good visualization of underlying structures. Next the Han[place] retractor is placed in the bladder blade was inserted. The bowels were packed with a 3 yard laparotomy sponge. Next the uterus is brought up incision and the corneal regions are grasped with Madelin clamps on both sides. The infundibulopelvic ligament was clamped on either side with a Marielle clamp, cut with Menjivar scissors, and sutured with 0 Vicryl suture in Marielle transfixion stitches. The remaining uterine ovarian ligament and round ligament was clamped on either side with a Marielle clamp, cut with Menjivar scissors, and sutured with 0 Vicryl suture in Marielle transfixion stitches. The vesicouterine peritoneum was sharply dissected away from the bladder with Metzenbaum scissors and pushed inferiorly. The uterine arteries are clamped on either side with a Marielle clamp. The uterine arteries are then cut with Menjivar scissors, and sutured with 0 Vicryl suture in Marielle transfixion stitches. Next the cardinal ligaments were clamped on either side with Marielle clamp, cut with Menjivar scissors, and sutured with 0 Vicryl suture in Marielle transfixion stitches. The uterosacral ligaments are clamped on either side with Marielle clamps, cut with Menjivar scissors, and sutured with 0 Vicryl suture in Marielle transfixion stitches on either side. The edges of the vaginal cuff were clamped on either side with a Marielle clamp, cut with Menjivar scissors, and sutured with 0 Vicryl suture in Marielle transfixion stitches and held on either side. The vaginal mucosa was then cut just below the level of the cervix and the specimen is removed from the field. The edges of the vaginal cuff were held with Fabiola clamps. Next the previously held corners of each side of the vaginal cuff were then whipstitched along the connective tissue on either side and brought through the corner of the cuff and tied. Next the vaginal cuff was sutured with 0 Vicryl suture in a running locked fashion. Good hemostasis was noted. Copious irrigation is carried out with warm saline. Excellent hemostasis is noted. All sponges are removed from the abdomen and sponge counts are correct. The peritoneum is then closed with 0 Vicryl suture in a running fashion. The muscle was then reapproximated with 0 Vicryl suture in interrupted fashion. The fascia layer is then closed with 0 PDS suture in a running fashion with the knots buried on either side and in the midline. Next the subcutaneous tissues closed with 2-0 Vicryl suture in a running fashion. The skin is closed with wood. All sponge and needle counts are correct and the patient is taken to recovery room in stable condition.
[2021-05-24] MEDS ORDERED: NALOXONE 0.4 MG/ML 1 ML VIAL IV PRN (11:03)
[2021-05-24] MEDS ORDERED: MORPHINE SULFATE 2 MG/ML SYRINGE IVP PRN (11:03)
[2021-05-24] MEDS ORDERED: diphenhydrAMINE 50 MG/ML 1 ML VIAL IVP PRN ×2 (11:03→11:05)
[2021-05-24] MEDS ORDERED: METOCLOPRAMIDE 5 MG/ML 2 ML VIAL IVP PRN (11:05)
[2021-05-24] MEDS ORDERED: ONDANSETRON 4 MG/2 ML VIAL IVP PRN (11:05)
[2021-05-24] MEDS ORDERED: ZOLPIDEM 5 MG TAB PO PRN (11:05)
[2021-05-24] MEDS ORDERED: SIMETHICONE 80 MG CHEWABLE PO PRN (11:05)
--- NOTE | 2021-05-24 11:06 | P.ANPRN ---
Procedure Note - Anesthesia - Epidural/Spinal Spinal Time Out Performed: Yes Date of Procedure: 05/24/21 Procedure Start Time: 07:04 (') Procedure Stop Time: 07:16 Location of Patient: PreOp Indication: Acute Post-Operative Pain Sedation Type: Sedate with meaningful contact maintained Preparation: Sterile Prep Position: Sitting Needle Guage: 25 Injectate: Other (Duramorph 300mcg + fentanyl 25mcg) Blood Aspirated: No Pain Paresthesia on Injection Noted: No Events: Uneventful and Well Tolerated
[2021-05-24] MEDS: KETOROLAC 15 MG/ML 1 ML VIAL IVP PRN (15:53)
[2021-05-24] MEDS: LACTATED RINGERS 1,000 ML IV SCH (16:41)
[2021-05-25] MEDS: KETOROLAC 15 MG/ML 1 ML VIAL IVP PRN ×2 (02:09→08:22)
[2021-05-25] MEDS: LACTATED RINGERS 1,000 ML IV SCH ×2 (02:10→08:30)
[2021-05-25 07:55] LABS: Basophils % (A) 0 %; Eosinophils # (A) 0.1 k/uL (0-0.7); Eosinophils % (A) 1 %; HCT 38.1 % (34.0-46.0); HGB 13.2 gm/dL (11.4-16.0); Lymphocytes # (A) 1.3 k/uL (1.0-4.8); Lymphocytes % (A) 13 %; MCH 30.3 pg (25.0-35.0); MCHC 34.7 g/dL (31.0-37.0); MCV 87.4 fL (80.0-100.0); Mean Platelet Volume 8.3; Monocytes % (A) 11 %; Neutrophils # (A) 7.2 k/uL (1.3-7.7); Neutrophils % (A) 74 %; Platelet Count 305 k/uL (150-450); RBC 4.36 m/uL (3.80-5.40); RDW 12.7 % (11.5-15.5); WBC 9.7 k/uL (3.8-10.6)
[2021-05-25] MEDS: SENNOSIDES-DOCUSATE SODIUM 1 EACH TAB PO SCH ×3 (08:24→21:47)
--- NOTE | 2021-05-25 10:53 | P.PN ---
Progress Note - Text Progress Note Date: 05/25/21820 Anesthesia Postop day 1 Subjective: Status Post section with Duramorph. Patient seen and examined. Doing well without complaint. VAS 2 out of 10. No nausea or vomiting. Mild pruritus tolerable.. Afebrile. Gross lower extremity strength intact. . Without apparent anesthetic complications. Objective: Vital signs reviewed Heart: Regular Rate Lungs: Good chest excursion Abdomen: Appears nondistended Assessment: Status post with Duramorph postop day 1 Plan: Continue current care with your medical management.
--- NOTE | 2021-05-25 10:54 | P.PN ---
Subjective Progress Note Date: 05/25/21 Principal diagnosis: Status post GLORIA/BSO postoperative day #1 The patient is doing well. She is ambulating. She is urinating without difficulty. She is passing some flatus but no bowel movement yet. Pain is fairly well controlled. Bleeding has been minimal. Objective - Vital Signs Vital signs: Vital Signs Temp 98.6 F 05/25/21 08:00 Pulse 93 05/25/21 08:00 Resp 18 05/25/21 08:00 BP 109/69 05/25/21 08:00 Pulse Ox 98 05/25/21 08:00 Intake & Output 05/24/21 05/25/21 05/25/21 18:59 06:59 18:59 Intake Total 850 Output Total 3725 800 250 Balance -2875 -800 -250 Weight 78.8 kg Intake: IV 850 Output: Urine 3700 800 250 Estimated Blood Loss 25 Other: Voiding Method Indwelling Catheter # Voids 400 1 - Constitutional General appearance: Present: no acute distress - Gastrointestinal Gastrointestinal Comment(s): Incision is clean dry and intact with wood in place General gastrointestinal: Present: normal bowel sounds - Musculoskeletal Musculoskeletal Comment(s): Negative Homans bilaterally - Labs CBC & Chem 7: 05/25/21 06:49 Assessment and Plan Assessment: Status post GLORIA/BSO postoperative day #1 (1) Breast cancer, left Current Visit: No Status: Acute Code(s): C50.912 - MALIGNANT NEOPLASM OF UNSPECIFIED SITE OF LEFT FEMALE BREAST SNOMED Code(s): 342709342 Plan: Continue with postoperative care. Will switch to oral pain medications today. May shower. Encouraged ambulation.
[2021-05-25] MEDS: ACETAMINOPHEN TAB 325 MG TAB PO PRN ×2 (13:57→21:47)
[2021-05-25] MEDS: IBUPROFEN 600 MG TAB PO PRN (16:57)
[2021-05-26] MEDS: IBUPROFEN 600 MG TAB PO PRN ×2 (01:10→08:59)
[2021-05-26 04:37] VITALS: RESP 16
[2021-05-26] MEDS: ACETAMINOPHEN TAB 325 MG TAB PO PRN (06:06)
[2021-05-26 08:16] VITALS: BP 112/76; PULSE 87; TEMP 97.7
[2021-05-26] MEDS: SENNOSIDES-DOCUSATE SODIUM 1 EACH TAB PO SCH (08:59)
--- NOTE | 2021-05-26 10:24 | P.DS ---
Providers Date of admission: 05/24/21 05:38 Expected date of discharge: 05/26/21 Attending physician: Erin Bowman Primary care physician: Amos Gentile - Discharge Diagnosis(es) (1) Breast cancer, left Current Visit: No Status: Acute Hospital Course: This is a 50-year-old female who presented for total abdominal hysterectomy with bilateral salpingo-oophorectomy secondary to history of breast cancer. She underwent the above procedure on 05/24/2021. Postoperatively she has done well. Her bleeding has been minimal. Her pain is well-controlled with ibuprofen and Tylenol. She is passing flatus and bowel movement. She is urinating without difficulty. Vital signs are stable. Abdomen is soft with positive bowel sounds 4. Incision is clean dry and intact with wood in place. Extremities show negative Homans. Impression is status post total abdominal hysterectomy with bilateral salpingo-oophorectomy postoperative day #2. Plan is to discharge home today. Wood will be removed and Steri-Strips placed prior to discharge. She will be given a prescription for ibuprofen 600. Routine postoperative instructions are given. She will also be given a abdominal binder to use while she is walking around but she is advised to take it off when she is lying in bed. She will follow up in the office in approximately 1-1/2-2 weeks. She is advised to call the office if she has any further questions or concerns prior to her postoperative appointment. Procedures: Total abdominal hysterectomy with bilateral salpingo-oophorectomy on 05/24/2021 Patient Condition at Discharge: Stable Plan - Discharge Summary Discharge Rx Participant: No New Discharge Prescriptions: New Ibuprofen [Motrin] 600 mg PO Q6HR PRN #60 tab PRN Reason: Mild Discomfort Continue Cholecalciferol (Vitamin D3) [Vitamin D3 (5000 Iu)] 125 mcg PO DAILY Discharge Medication List Cholecalciferol (Vitamin D3) [Vitamin D3 (5000 Iu)] 125 mcg PO DAILY 09/05/20 [History] Ibuprofen [Motrin] 600 mg PO Q6HR PRN #60 tab 05/26/21 [Rx] Follow up Appointment(s)/Referral(s): Erin Bowman DO [Doctor of Osteopathic Medicine] - 2 Weeks Patient Instructions/Handouts: *[facility] - (Anesthesia) Discharge Instructions Outpatient Surgery, *[facility] - Scopalamine Patch Instructions Discharge Disposition: HOME SELF-CARE
== END 2021-05-26 12:40 | disposition home or self-care (01) | DRG 743 ==
LOC: 2ORMAIN 05:38 → 4FBP 10:02
PROVIDERS: ADMIT Obstetrics & Gynecology; ATTEND Obstetrics & Gynecology
PROC: 0UTC0ZZ Resection of Cervix, Open Approach (ICD-10-PCS; 2021-05-24)
PROC: 0UT20ZZ Resection of Bilateral Ovaries, Open Approach (ICD-10-PCS; 2021-05-24)
PROC: 0UT70ZZ Resection of Bilateral Fallopian Tubes, Open Approach (ICD-10-PCS; 2021-05-24)
PROC: 0UT90ZZ Resection of Uterus, Open Approach (ICD-10-PCS; principal; 2021-05-24 07:30)
DX: Z40.02 Encounter for prophylactic removal of ovary(s) (principal); C50.912 Malignant neoplasm of unspecified site of left female breast; L29.9 Pruritus, unspecified; Z17.0 Estrogen receptor positive status [ER+]; Z98.51 Tubal ligation status; Z20.822 Contact with and (suspected) exposure to COVID-19; Z92.21 Personal history of antineoplastic chemotherapy; Z92.3 Personal history of irradiation; Z91.02 Food additives allergy status
CPT/HCPCS: 81025; 85025; 86850; 86900; 86901; 87635; 88307

== ENCOUNTER → 2021-08-09 | Outpatient (CLI) | payer BC, MEDICAID ==
--- NOTE | 2021-08-09 16:11 | BD ---
EXAMINATION TYPE: Axial Bone Density DATE OF EXAM: 08/09/2021 COMPARISON: NONE CLINICAL HISTORY: Height: 65 IN Weight: 171 LBS RISK FACTORS HISTORY OF: Active: YES Diet low in dairy products/other sources of calcium: YES Postmenopausal woman: TOTAL HYST AGE 50 MEDICATIONS: Additional Medications: VIT D 5000 U ONCE PER WEEK,LETROZOLE,MAGNESIUM Additional History: BREAST CANCER WITH CHEMO RADIATION EXAM MEASUREMENTS: Bone mineral densitometry was performed using the [employer] System. Bone mineral density as measured about the Lumbar spine is: ----- L1-L4(G/cm2): 1.237 T Score Values are as follows: ----- L2: -0.1 ----- L3: 0.5 ----- L4: 1.0 ----- L1-L4: 0.5 Bone mineral density BASELINE Bone mineral density about the R hip (g/cm2): 0.936 Bone mineral density about the L hip (g/cm2): 0.969 T Score values are as follows: -----R Neck: -0.7 -----L Neck: -0.5 -----R Total: 0.0 -----L Total: -0.1 Bone mineral density BASELINE IMPRESSION: Normal (Values between +1 and -1 indicate normal bone mass). Consider repeating this study in 5 year s or sooner if there is some new clinical indication. NOTE: T-SCORE=SD OF THE YOUNG ADULT MEAN.
== END | disposition home or self-care (01) ==
LOC: RADBDWWP 08-06 07:21
PROVIDERS: ATTEND Obstetrics & Gynecology
DX: N95.1 Menopausal and female climacteric states (principal)
CPT/HCPCS: 77080

== ENCOUNTER → 2021-09-04 | Outpatient (CLI) | payer OTHER ==
--- NOTE | 2021-09-04 10:14 | MM ---
Reason for exam: additional evaluation requested from prior study. Last mammogram was performed 10 months ago. History: Patient has history of breast cancer at age 49. Malignant US breast localization LT, October 22, 2020. Lumpectomy of the left breast, October 22, 2020. Malignant US biopsy breast VAD LT of the left breast, September 13, 2020. Took hormonal contraceptives for 20 years. Taking antineoplastic for 3 months beginning at age 50. Physical Findings: Nurse did not find any significant physical abnormalities on exam. MG 3D Diag Mammo W/Cad BRYAN Bilateral CC and MLO view(s) were taken. XCCL view(s) were taken of the left breast. Prior study comparison: October 22, 2020, left breast MG diagnostic mammo LT wo CAD. September 13, 2020, left breast MG diagnostic mammo LT wo CAD. The breast tissue is heterogeneously dense. This may lower the sensitivity of mammography. Post surgical and post therapy change left breast. Follow up to assess for any evolving post therapy change. These results were verbally communicated with the patient and result sheet given to the patient on 09/04/21. ASSESSMENT: Probably benign, BI-RAD 3 RECOMMENDATION: Follow-up diagnostic mammogram of the left breast in 6 months.
== END | disposition home or self-care (01) ==
LOC: RADMAMWWP 07:34
PROVIDERS: ATTEND Internal Medicine Hematology & Oncology
DX: R92.8 Other abnormal and inconclusive findings on diagnostic imaging of breast (principal); Z85.3 Personal history of malignant neoplasm of breast
CPT/HCPCS: 77062; 77066

== ENCOUNTER → 2022-03-11 | Outpatient (CLI) | payer OTHER ==
--- NOTE | 2022-03-11 08:39 | MM ---
Reason for Exam: Follow-up at short interval from prior study. Last screening mammogram was performed 6 month(s) ago. Patient History: Menarche at age 13. First Full-Term at age 18. Breast cancer, age 49. Patient used Hormonal Contraceptives for 20 years. 10/22/2020, Lumpectomy on the Left side. Malignant Core Biopsy. 09/13/2020, Malignant Core Biopsy on the left side. 2020, Radiation Therapy on the left side. Chemotherapy. Prior Study Comparison: 09/13/2020 Left Diagnostic Mammogram, [facility]. 10/22/2020 Left Diagnostic Mammogram, [facility]. 09/04/2021 Bilateral Diagnostic Mammogram, [facility]. Tissue Density: Left: The breast tissue is heterogeneously dense. This may lower the sensitivity of mammography. Findings: Analyzed By CAD. Postoperative changes of left-sided lumpectomy and lymph node dissection. Skin thickening seen. There is no evidence for mass or suspicious clustered microcalcifications. Overall Assessment: Benign, BI-RAD 2 Management: Diagnostic Mammogram of both breasts in 6 months. A clinical breast exam by your physician is recommended on an annual basis and results should be correlated with mammographic findings. This exam should not preclude additional follow-up of suspicious palpable abnormalities. Results were given to the patient verbally at the time of exam. Electronically signed and approved by: Onur Mayorga M.D. Radiologis
== END | disposition home or self-care (01) ==
LOC: RADMAMWWP 08:07
PROVIDERS: ATTEND Internal Medicine Hematology & Oncology
DX: C50.512 Malignant neoplasm of lower-outer quadrant of left female breast (principal)
CPT/HCPCS: 77061; 77065

== ENCOUNTER → 2022-09-15 | Outpatient (CLI) | payer MEDICAID ==
--- NOTE | 2022-09-15 07:20 | MM ---
Reason for Exam: Hx of breast cancer, conservation therapy. Last screening mammogram was performed 12 month(s) ago. Patient History: Menarche at age 13. First Full-Term at age 18. Left ovary removed at age 50. Right ovary removed at age 50. Hysterectomy at age 50. Postmenopausal. Breast cancer, age 49. Patient used Hormonal Contraceptives for 20 years. 10/22/2020, Lumpectomy on the Left side. Malignant Core Biopsy. 09/13/2020, Malignant Core Biopsy on the left side. 2020, Radiation Therapy on the left side. Chemotherapy. Tissue Density: The breast tissue is heterogeneously dense. This may lower the sensitivity of mammography. Findings: Analyzed By CAD. Postsurgical and post therapy changes to the left breast. No new suspicious masses or worrisome cluster of microcalcifications within either breast. Overall Assessment: Benign, BI-RAD 2 Management: Diagnostic Mammogram of both breasts in 1 year. A clinical breast exam by your physician is recommended on an annual basis and results should be correlated with mammographic findings. This exam should not preclude additional follow-up of suspicious palpable abnormalities. Results were given to the patient verbally at the time of exam. Electronically signed and approved by: Tuan Liang D.O.
== END | disposition home or self-care (01) ==
LOC: RADMAMWWP 06:53
PROVIDERS: ATTEND Internal Medicine Hematology & Oncology
DX: R92.2 Inconclusive mammogram (principal); Z85.3 Personal history of malignant neoplasm of breast; Z78.0 Asymptomatic menopausal state; Z98.890 Other specified postprocedural states
CPT/HCPCS: 77062; 77066

== ENCOUNTER → 2022-09-15 | Outpatient (CLI) | payer MEDICAID ==
[2022-09-15 11:37] LABS: Basophils # (A) 0.06 X 10*3/uL (0.00-0.10); Basophils % (A) 0.4 %; Eosinophils # (A) 0.14 X 10*3/uL (0.04-0.35); Eosinophils % (A) 0.9 %; HCT 43.3 % (37.2-46.3); HGB 13.9 g/dL (12.0-15.0); Immature Grans, Automated 0.5 %; Lymphocytes % (A) 21.2 %; MCH 28.8 pg (27.0-32.0); MCHC 32.1 g/dL (32.0-37.0); MCV 89.6 fL (80.0-97.0); Mean Platelet Volume 9.9 fL (9.5-12.2); Monocytes # (A) 0.85 X 10*3/uL (0.20-1.00); Monocytes % (A) 5.5 %; NRBC Per 100 WBC 0 /100 WBCS (0.0-0.0); Neutrophils # (A) 11.12 X 10*3/uL (1.80-7.70); Neutrophils % (A) 71.5 %; Platelet Count 405 X 10*3/uL (140-440); RBC 4.83 X 10*6/uL (4.10-5.20); RDW 13.2 % (11.5-14.5); WBC 15.55 X 10*3/uL (4.50-10.00)
[2022-09-15 11:55] LABS: % Iron Saturation 18.16 (12.00-45.00); ALT 28 U/L (8-44); AST 17 U/L (13-35); African American GFR (CKD) 115.5 (60.0-200.0); Albumin 4.8 g/dL (3.8-4.9); Albumin/Globulin Ratio 1.55 (1.60-3.17); Alkaline Phosphatase 98 U/L (41-126); Blood Urea Nitrogen 16.8 mg/dL (9.0-27.0); Calcium 10.1 mg/dL (8.7-10.3); Carbon Dioxide 28.2 mmol/L (20.0-27.5); Chloride 102 mmol/L (96-109); Globulin 3.1 g/dL (1.6-3.3); Glucose 85 mg/dL (70-110); Iron 66 ug/dL (50-170); Magnesium 2.4 mg/dL (1.5-2.4); Non-African American GFR(CKD) 99.6 (60.0-200.0); Phosphorus 4.1 mg/dL (2.4-5.1); Potassium 4.6 mmol/L (3.5-5.5); Sodium 139 mmol/L (135-145); Total Iron Binding Capacity 361 ug/dL (228-460); Total Protein 7.9 g/dL (6.2-8.2)
[2022-09-15 11:58] LABS: Cancer Antigen 153 24.8 U/mL (0.0-32.3)
[2022-09-15 12:05] LABS: Insulin Level 7.7 mIU/mL (3.0-25.0)
[2022-09-15 12:07] LABS: Erythrocyte Sedimentation Rate 21 mm/Hr (0-30); LDH 160 U/L (120-246)
[2022-09-15 12:14] LABS: Chol/HDL Ratio 2.84 Ratio; LDL Cholesterol,Calculated 106.3 mg/dL (0.0-131.0); VLDL Calculation 15.64 mg/dL (5.00-40.00)
[2022-09-15 12:29] LABS: Rheumatoid Factor, Qnt <10 IU/mL (0-15)
[2022-09-15 12:36] LABS: Procalcitonin 0.05 ng/mL (0.02-0.09)
[2022-09-15 13:58] LABS: Gliadin AB IgA, Deaminated NEGATIVE (NEGATIVE); Gliadin AB IgA, Unit 1.9 U/mL; Gliadin AB IgG, Deaminated NEGATIVE (NEGATIVE); Gliadin AB IgG, Unit <0.4 U/mL
[2022-09-16 02:43] LABS: Prolactin 11.5 ng/mL (2.800-29.200)
== END | disposition home or self-care (01) ==
LOC: LABWHC1 07:25
PROVIDERS: ATTEND Nurse Practitioner Adult Health
DX: C50.919 Malignant neoplasm of unspecified site of unspecified female breast (principal); G72.49 Other inflammatory and immune myopathies, not elsewhere classified; K86.81 Exocrine pancreatic insufficiency; E55.9 Vitamin D deficiency, unspecified; E03.9 Hypothyroidism, unspecified; L73.0 Acne keloid
CPT/HCPCS: 36415; 80053; 80061; 82306; 82533; 82607; 82728; 82746; 82784; 83036; 83090; 83516; 83525; 83540; 83550; 83615; 83695; 83735; 83970; 84100; 84145; 84146; 84305; 84432; 84439; 84443; 84481; 85025; 85652; 86038; 86039; 86300; 86431

== ENCOUNTER → 2023-03-02 | Outpatient (CLI) | payer MEDICAID ==
[2023-03-02 10:29] LABS: Basophils % (A) 0 %; Eosinophils # (A) 0.3 k/uL (0-0.7); Eosinophils % (A) 4 %; HCT 43.6 % (34.0-46.0); HGB 14.5 gm/dL (11.4-16.0); Lymphocytes # (A) 1.6 k/uL (1.0-4.8); Lymphocytes % (A) 23 %; MCH 29.1 pg (25.0-35.0); MCHC 33.2 g/dL (31.0-37.0); MCV 87.7 fL (80.0-100.0); Mean Platelet Volume 8.3; Monocytes # (A) 0.4 k/uL (0-1.0); Monocytes % (A) 6 %; Neutrophils # (A) 4.6 k/uL (1.3-7.7); Neutrophils % (A) 66 %; Platelet Count 363 k/uL (150-450); RBC 4.97 m/uL (3.80-5.40); RDW 13.1 % (11.5-15.5)
[2023-03-02 11:17] LABS: Erythrocyte Sedimentation Rate 18 mm/hr (0-20)
[2023-03-02 16:19] LABS: Homocysteine 7.37 UMOL/L (4.00-14.00)
[2023-03-02 16:31] LABS: ALT 30 U/L (8-44); AST 19 U/L (13-35); Albumin 4.5 d/dL (3.8-4.9); Alkaline Phosphatase 108 U/L (41-126); BUN/Creat Ratio 19.71 Ratio (12.00-20.00); Blood Urea Nitrogen 13.8 mg/dL (9.0-27.0); C Reactive Protein <0.30 mg/dL (0.00-0.80); Calcium 10.1 mg/dL (8.7-10.3); Carbon Dioxide 26.1 mmol/L (21.6-31.8); Chloride 104 mmol/L (96-109); Chol/HDL Ratio 3.14 Ratio; Glucose 90 mg/dL (70-110); LDL Cholesterol,Calculated 123.6 mg/dL (0.0-131.0); Potassium 4.7 mmol/L (3.5-5.5); Sodium 141 mmol/L (135-145); Total Bilirubin 0.4 mg/dL (0.3-1.2); Total Protein 7.5 d/dL (6.2-8.2); Uric Acid 5.3 mg/dL (2.9-7.7); VLDL Calculation 16.82 mg/dL (5.00-40.00)
[2023-03-02 18:42] LABS: Insulin Level 6.2 mIU/mL (3.0-25.0)
[2023-03-02 19:07] LABS: Anti-Smith Ab Interp Negative (Negative); Scleroderma SC-70 Ab <0.2 AI
[2023-03-04 10:38] LABS: Zinc, Serum 100 ug/dL (60-130)
[2023-03-04 11:35] LABS: Smooth Muscle Antibody 3 UNITS (<20)
== END | disposition home or self-care (01) ==
LOC: LABWHC1 07:38
PROVIDERS: ATTEND Physical Medicine & Rehabilitation
DX: Z00.00 Encounter for general adult medical examination without abnormal findings (principal); C50.911 Malignant neoplasm of unspecified site of right female breast; C50.912 Malignant neoplasm of unspecified site of left female breast; D68.59 Other primary thrombophilia; E03.9 Hypothyroidism, unspecified; M34.89 Other systemic sclerosis; R21 Rash and other nonspecific skin eruption
CPT/HCPCS: 36415; 80053; 80061; 82040; 82180; 82306; 82525; 82728; 83036; 83090; 83516; 83525; 83625; 84207; 84270; 84403; 84425; 84446; 84550; 84590; 84630; 85025; 85652; 86140; 86235; 86720

== ENCOUNTER → 2023-09-16 | Outpatient (CLI) | payer BC, MEDICAID ==
--- NOTE | 2023-09-16 11:05 | MM ---
Reason for Exam: Screening (asymptomatic). Last screening mammogram was performed 12 month(s) ago. Patient History: Menarche at age 13. First Full-Term at age 18. Left ovary removed at age 50. Right ovary removed at age 50. Hysterectomy at age 50. Postmenopausal. Breast cancer, left, age 49. Previous chest radiation therapy at age 50. Patient used Hormonal Contraceptives for 20 years. 10/22/2020, Lumpectomy on the Left side. Malignant Core Biopsy. 09/13/2020, Malignant Core Biopsy on the left side. 2020, Radiation Therapy on the left side. Chemotherapy. Prior Study Comparison: 09/04/2021 Bilateral Diagnostic Mammogram, [facility]. 03/11/2022 Left MG 3D diag mammo w/cad LT, [facility]. 09/15/2022 Bilateral MG 3D diag mammo w/cad BRYAN, [facility]. Tissue Density: The breast tissue is heterogeneously dense. This may lower the sensitivity of mammography. Findings: Analyzed By CAD. Postsurgical and posttreatment changes left breast. Some new developing calcifications at the surgical site posterior upper outer quadrant left breast. There is also some asymmetric density here on the MLO view for which spot compression is recommended. No significant change in the right breast. Overall Assessment: Incomplete: need additional imaging evaluation, BI-RAD 0 Management: Special View Mammogram of the left breast. . [facility] will attempt to contact patient to return for supplemental views and ultrasound if indicated. Electronically signed and approved by: Kayla Lan M.D. Radiologist
--- NOTE | 2023-09-16 11:08 | MM ---
Reason for Exam: Additional evaluation requested from abnormal screening. Last screening mammogram was performed 12 month(s) ago. Patient History: Menarche at age 13. First Full-Term at age 18. Left ovary removed at age 50. Right ovary removed at age 50. Hysterectomy at age 50. Postmenopausal. Breast cancer, left, age 49. Previous chest radiation therapy at age 50. Patient used Hormonal Contraceptives for 20 years. 10/22/2020, Lumpectomy on the Left side. Malignant Core Biopsy. 09/13/2020, Malignant Core Biopsy on the left side. 2020, Radiation Therapy on the left side. Chemotherapy. Prior Study Comparison: 09/04/2021 Bilateral Diagnostic Mammogram, [facility]. 03/11/2022 Left MG 3D diag mammo w/cad LT, [facility]. 09/15/2022 Bilateral MG 3D diag mammo w/cad BRYAN, [facility]. Tissue Density: Left: The breast tissue is heterogeneously dense. This may lower the sensitivity of mammography. Findings: Analyzed By CAD. Post surgical and post treatment changes redemonstrated posterior upper-outer quadrant left breast. Only a couple heterogeneous calcifications at the lumpectomy site are present. This does not comprise a group of calcifications at this time and probably represents early fat necrosis calcification. A asymmetric density posteriorly does not appear to persist, suspected superimposition shadow. Six-month follow-up recommended. Overall Assessment: Probably benign, BI-RAD 3 Management: Diagnostic Mammogram of the left breast in 6 months. To reassess the suspected early fat necrosis calcifications and to assess for any other evolving posttreatment change. Results were given to the patient verbally at the time of exam. Patient should continue monthly self-breast exams. A clinical breast exam by your physician is recommended on an annual basis. This exam should not preclude additional follow-up of suspicious palpable abnormalities. Electronically signed and approved by: Kayla Lan M.D. Radiologist
--- NOTE | 2023-09-16 18:28 | BD ---
EXAMINATION TYPE: Axial Bone Density DATE OF EXAM: 09/16/2023 CLINICAL HISTORY: 52 years old Female. ICD-10 CODE: C50.512 CANCER OF LEFT FEMALE BREAST Height: 65 Weight: 180.0 FRAX RISK QUESTIONS: Alcohol (3 or more units per day): no Family History (Parent hip fracture): no Glucocorticoids (More than 3mos): no (Ex: prednisone, prednisolone, methylprednisolone, dexamethasone, and hydrocortisone). History of Fracture in Adulthood: no Secondary Osteoporosis: 1. Type 1 Diabetes: no 2. Hyperthyroidism: no 3. Menopause before 45: no 4. Malnutrition: no 5. Chronic liver disease: no Rheumatoid Arthritis: no Current Tobacco Use: no RISK FACTORS HISTORY OF: Surgery to Spine/Hip(right/left)/Wrist (right/left): no MEDICATIONS: letrozole Additional History: EXAM MEASUREMENTS: Bone mineral densitometry was performed using the [employer] System. Bone mineral density as measured about the Lumbar spine is: ----- L1-L4(G/cm2): 1.107 T Score Values are as follows: ----- L1: -1.0 ----- L2: -0.5 ----- L3: -0.8 ----- L4: -0.4 ----- L1-L4: -0.6 Z Score Values are as follows: ----- L1: -0.9 ----- L2: -0.4 ----- L3: -0.6 ----- L4: -0.3 ----- L1-L4: -0.5 Bone mineral density has: decreased 10.5 % since study of: 08.09.2021 Bone mineral density about the R hip (g/cm2): 0.939 Bone mineral density about the L hip (g/cm2): 0.916 T Score values are as follows: -----R Neck: -1.2 -----L Neck: -1.2 -----R Total: -0.5 -----L Total: -0.7 Z Score values are as follows: -----R Neck: -0.6 -----L Neck: -0.6 -----R Total: -0.3 -----L Total: -0.5 Bone mineral density has: decreased -7.4 % since study of: 08.09.2021 FRAX%s: The graph provided illustrates a 5.5% chance for a major osteoporotic fx and a 0.3% chance fo r the hips probability for fx in 10 years time. IMPRESSION: Osteopenia (T Score between -2.5 and -1). There is slightly increased risk of fracture and the patient may be considered for treatment. Re-Screen 2-5 years. NOTE: T-SCORE=SD OF THE YOUNG ADULT MEAN.
== END | disposition home or self-care (01) ==
LOC: RADMAMWWP 10:08
PROVIDERS: ATTEND Internal Medicine Hematology & Oncology
DX: Z12.31 Encounter for screening mammogram for malignant neoplasm of breast (principal); R92.332 Mammographic heterogeneous density, left breast; M85.89 Other specified disorders of bone density and structure, multiple sites; Z78.0 Asymptomatic menopausal state; Z85.3 Personal history of malignant neoplasm of breast
CPT/HCPCS: 77061; 77063; 77065; 77067; 77080

== ENCOUNTER → 2024-03-17 | Outpatient (CLI) | payer BC ==
--- NOTE | 2024-03-17 08:48 | MM ---
Reason for Exam: Follow-up at short interval from prior study. Last screening mammogram was performed 6 month(s) ago. Patient History: Menarche at age 13. First Full-Term at age 18. Left ovary removed at age 50. Right ovary removed at age 50. Hysterectomy at age 50. Postmenopausal. Breast cancer, left, age 49. Previous chest radiation therapy at age 50. Patient used Hormonal Contraceptives for 20 years. 10/22/2020, Lumpectomy on the Left side. Malignant Core Biopsy. 09/13/2020, Malignant Core Biopsy on the left side. 2020, Radiation Therapy on the left side. Chemotherapy. Prior Study Comparison: 09/15/2022 Bilateral MG 3D diag mammo w/cad BRYAN, [facility]. 09/16/2023 Left MG 3D work up w/cad , [facility]. 09/16/2023 Bilateral MG 3D screening mammo w/cad, [facility]. Tissue Density: Left: The breasts are heterogeneously dense, which may obscure small masses. Findings: Analyzed By CAD. The pattern is stable. Multiples postsurgical clips are in the upper outer left breast. No significant is evident No suspicious groups of microcalcifications, spiculated or lobular masses, architectural distortion or other secondary signs of malignancy are mammographically apparent. Overall Assessment: Benign, BI-RAD 2 Management: Diagnostic Mammogram of both breasts in 6 months. A negative mammogram report should not preclude additional follow up of suspicious palpable abnormalities. Patient should continue monthly self breast exam. A clinical breast exam by your physician is recommended on an annual basis and results should be correlated with mammographic findings. Note on Loulou scores and lifetime risk: 1. A Loulou score greater than 3% is considered moderate risk. If this is the case, consider specialist referral to assess eligibility for a risk reducing agent. 2. If overall lifetime risk for the development of breast cancer is 20% or higher, the patient may qualify for future screening with alternating mammogram and breast MRI. Electronically signed and approved by: Matt Castellanos D.O. Radiologis
== END | disposition home or self-care (01) ==
LOC: RADMAMWWP 08:07
PROVIDERS: ATTEND Internal Medicine Hematology & Oncology
DX: R92.8 Other abnormal and inconclusive findings on diagnostic imaging of breast (principal); R92.332 Mammographic heterogeneous density, left breast; Z78.0 Asymptomatic menopausal state
CPT/HCPCS: 77061; 77065

== ENCOUNTER → 2024-09-27 | Outpatient (CLI) | payer BC ==
--- NOTE | 2024-09-27 08:26 | MM ---
Reason for Exam: Follow-up at short interval from prior study. Last screening mammogram was performed 12 month(s) ago. Patient History: Menarche at age 13. First Full-Term at age 18. Left ovary removed at age 50. Right ovary removed at age 50. Hysterectomy at age 50. Postmenopausal. Breast cancer, left, age 49. Previous chest radiation therapy at age 50. Patient used Hormonal Contraceptives for 20 years. 10/22/2020, Lumpectomy on the Left side. Malignant Core Biopsy. 09/13/2020, Malignant Core Biopsy on the left side. 2020, Chemotherapy. 2020, Radiation Therapy on the left side. Chemotherapy. Tissue Density: The breasts are heterogeneously dense, which may obscure small masses. Findings: Analyzed By CAD. Left breast surgical clips. No new suspicious masses, calcifications or distortions. Overall Assessment: Benign, BI-RAD 2 Management: Screening Mammogram of both breasts in 1 year. Results were given to the patient verbally at the time of exam. Patient should continue monthly self-breast exams. A clinical breast exam by your physician is recommended on an annual basis. This exam should not preclude additional follow-up of suspicious palpable abnormalities. Note on Loulou scores and lifetime risk: 1. A Loulou score greater than 3% is considered moderate risk. If this is the case, consider specialist referral to assess eligibility for a risk reducing agent. 2. If overall lifetime risk for the development of breast cancer is 20% or higher, the patient may qualify for future screening with alternating mammogram and breast MRI. [facility], , 09/27/2024 8:09 AM. Electronically signed and approved by: Cipriano Parks DO
== END | disposition home or self-care (01) ==
LOC: RADMAMWWP 07:26
PROVIDERS: ATTEND Internal Medicine Hematology & Oncology
DX: R92.2 Inconclusive mammogram (principal); R92.333 Mammographic heterogeneous density, bilateral breasts; C50.512 Malignant neoplasm of lower-outer quadrant of left female breast; M85.9 Disorder of bone density and structure, unspecified; Z71.3 Dietary counseling and surveillance; Z78.0 Asymptomatic menopausal state; Z92.0 Personal history of contraception; Z92.3 Personal history of irradiation; Z90.722 Acquired absence of ovaries, bilateral
CPT/HCPCS: 77062; 77066